=== PATIENT | female | born 1930 | race Caucasian/White ===

== ENCOUNTER 2019-06-14 16:03 | Emergency (ER) | payer OTHER ==
[~2019-06-14] VITALS: Ht 160 cm; Wt 56.7 kg
--- NOTE | 2019-06-14 16:24 | NUR ---
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 PT DENIES KO. ABRASION AND BRUISING NOTED TO R EYE AREA. NO OBVIOUS DEFORMITY NOTED AQUATIC PERFORMER. VSS. AWAITING MD VILLAGRAN.
--- NOTE | 2019-06-14 16:28 | NUR ---
DR ROLLE AT BEDSIDE FOR EVAL.
[2019-06-14] MEDS ORDERED: ONDANSETRON HCL/PF 4 MG/2 ML VIAL IVP ONE (16:30)
[2019-06-14] MEDS ORDERED: MORPHINE SULFATE INJ 2 MG/ML DISP.SYRIN IV ONE ×2 (16:30→18:30)
--- NOTE | 2019-06-14 16:39 | NUR ---
SISTER: [facility] # [phone], CELL [phone] : TERI PATTON [phone] CALLED , NO ANSWER
[2019-06-14] MEDS ORDERED: MORPHINE SULFATE INJ 2 MG/ML DISP.SYRIN ONE ×2 (16:49→18:32)
[2019-06-14] MEDS ORDERED: ONDANSETRON HCL/PF 4 MG/2 ML VIAL ONE (16:49)
[2019-06-14 16:55] LABS: BASOPHILS % (AUTO) 0.2 % (0.0-2.0); EOSINOPHILS % (AUTO) 1.1 % (0.0-6.0); HEMATOCRIT 40 % (33-45); HEMOGLOBIN 13.8 g/dL (11.5-14.8); LYMPHOCYTES # (AUTO) 0.9 /CMM (0.8-4.8); LYMPHOCYTES % (AUTO) 12.7 % (20.0-44.0); MEAN CORPUSCULAR HGB CONC 34 g/dl (31.0-36.0); MEAN CORPUSCULAR VOLUME 93 fL (82-100); MONOCYTES # (AUTO) 0.3 /CMM (0.1-1.30); MONOCYTES % (AUTO) 4.3 % (2.0-12.0); NEUTROPHILS # (AUTO) 5.7 /CMM (1.8-8.9); NEUTROPHILS % (AUTO) 81.7 % (43.0-81.0); PLATELET COUNT (AUTO) 146 /CMM (150-450); RED BLOOD CELL COUNT(AUTO) 4.32 MIL/uL (4.0-5.2)
[2019-06-14] MEDS ORDERED: TDAP [DIPH/PERTUSSIS/TET] 0.5 ML VIAL IM ONE ×2 (17:00→17:06)
--- NOTE | 2019-06-14 17:13 | NUR ---
PT OT RADIOLOGY FOR HEAD AND C SPINE CT SCAN VIA [facility].
[2019-06-14 17:37] LABS: CALCIUM, SERUM 9.1 mg/dL (8.5-10.1); CREATININE 0.8 mg/dL (0.6-1.3); POTASSIUM 4.5 mmol/L (3.5-5.1)
--- NOTE | 2019-06-14 18:20 | NUR ---
PT TRIED STANDING UP AND AMBULATE. PT UNABLE TO AMBULATE C/O R RIB AREA AND BLE. DR ROLLE AWARE.
--- NOTE | 2019-06-14 18:33 | NUR ---
PT TO RADIOLOGY FOR PELVIC CT SCAN VIA [facility].
--- NOTE | 2019-06-14 18:33 | NUR ---
[facility] CALLED. AWAITING FOR CALL BACK FOR [facility] PROVIDER, FOR MD TO MD REPORT.
--- NOTE | 2019-06-14 19:20 | NUR ---
REPORT GIVEN TO JUNIOR BUYER NURSE LILY FOR RANDI.
--- NOTE | 2019-06-14 19:56 | NUR ---
TRANSFER INFORMATION: PT WILL BE TRANSFERRED TO [facility] ER ACCEPTING MD: DR. BRYSON NUMBER FOR REPORT: [phone] [facility] ETA [id number]
[2019-06-14 20:01] VITALS: BP 115/60
--- NOTE | 2019-06-14 20:02 | NUR ---
PT RESTING. NEICE AT BEDSIDE. VSS.
--- NOTE | 2019-06-14 20:32 | NUR ---
REPORT GIVEN TO RAVEN MCCARTHY FOR RANDI. PRN AT SITE TAKING DOWN REPORT. VSS.
== END 2019-06-14 20:45 | disposition short-term general hospital (02) ==
LOC: ER 16:05
DX: S00.83XA Contusion of other part of head, initial encounter (principal); S20.211A Contusion of right front wall of thorax, initial encounter; S37.892A Contusion of other urinary and pelvic organ, initial encounter; R51 Headache; I45.10 Unspecified right bundle-branch block; I44.4 Left anterior fascicular block; W01.198A Fall on same level from slipping, tripping and stumbling with subsequent striking against other object, initial encounter; Y93.89 Activity, other specified; Y92.89 Other specified places as the place of occurrence of the external cause; Y99.8 Other external cause status
CPT/HCPCS: 36415; 70450; 71100; 72125; 72192; 73502; 80048; 85025; 90471; 90715; 93005; 96374; 96375; 96376; 99285; A6403; J2270 ×2; J2405